=== PATIENT | male | born 1995 | race Caucasian/White ===

== ENCOUNTER 2025-04-08 22:48 | Emergency (ER) | payer OTHER, SELFPAY ==
[2025-04-08 23:02] VITALS: BP 119/74; PULSE 84; RESP 18; TEMP 36; O2SAT 97; BMI 24.0
[2025-04-09 00:02] VITALS: BP 120/74; PULSE 93; RESP 16; TEMP 36.7; O2SAT 98
--- NOTE | 2025-04-09 00:44 | ED_ITS ---
HPI - Male Genitourinary General Chief complaint: Urogenital-Male Stated complaint: Genital Warts Time Seen by Provider: 04/09/25 00:44 Source: patient Mode of arrival: ambulatory Limitations: no limitations History of Present Illness ED Provider: Anoop WOLFE HPI Narrative: 30-year-old male who presents to the Emergency Department for evaluation of genital lesions that have been present for >1 month. He reports that while hospitalized in [facility] in July of this year for hernia surgery, he had a lesion ?underneath? (uncertain if wart vs. abscess), which was removed during that hospitalization. He describes it as ?some kind of black thing,? but clarifies it was present since childhood, not necessarily related to the hernia surgery. In the last month he has noticed new genital warts that are progressively increasing in number. The lesions are pruritic but not painful. He denies penile discharge or scrotal swelling and feels well otherwise. The patient was evaluated by his primary care physician, who recommended HPV vacccination. The patient has been researching topical therapies such as imiquimod or podofilox. He has an appointment with urology in May but is concerned about the long wait. Patient states he and his have been attempting conception for the past 6?7 months without success and are worried whether the genital warts could be affecting fertility. Related Data Previous Rx's ?Medication ?Instructions ?Recorded podofilox 0.5 % topical solution 1 appl topical Q12H 3 days #3.5 mL 04/09/25 Allergies Allergy/AdvReac Type Severity Reaction Status Date / Time No Known Allergies Allergy Verified 04/08/25 23:06 Review of Systems Review of Systems: Yes all other systems are reviewed and are negative [facility] Social History Social History Smoked in Last 30 Days: Yes Use of substances other than those prescribed or required for medical reasons: No Advance Directives: No Advance Directives Information Provided: Yes Do you have a plan to hurt others: No Plan Physical Exam Vital Signs: Vital Signs: Last Vital Signs Temp 98.0 F 04/09/25 00:02 Pulse 93 04/09/25 00:02 Resp 16 04/09/25 00:02 BP 120/74 04/09/25 00:02 Pulse Ox 98 04/09/25 00:02 O2 Del Method Room Air 04/09/25 00:02 BMI result Body Mass Index 24.0 CONSTITUTIONAL: The patient appears non-toxic, well nourished and in no acute distress. Vital signs as documented. HEAD: Atraumatic, normocephalic. EYES: EOMs grossly intact, pupils equal, conjunctiva clear, no exudate. ENT: Nares patent, no discharge. Airway patent, no audible stridor, visible mucosa is pink and moist without noted lesions. NECK: trachea is midline, no obvious masses or gross abnormalities. CHEST: Symmetric movement, normal appearance. LUNGS: Non-labored work of breathing. CARDIAC: No evidence of hypoperfusion. ABDOMEN: Nondistended, no obvious injury. : Deferred. EXTREMITIES: Moves all extremities spontaneously without reported pain. No obvious injury or deformity noted. NEURO: Alert and oriented x3, CN II-XII appear grossly intact. Cerebellar Functioning grossly intact. Speech clear and appropriate. SKIN: There are multiple non erythematous papular lesions noted to the groin consistent with condylomata acuminata. Skin is otherwise warm, dry, color appropriate. No other rashes or lesions noted. Medical Decision Making Medical Decision Making MDM Narrative: 1:41 AM 04/09/2025 (Luis WOLFE): 30-year-old male who presents to the Emergency Department for evaluation of genital lesions that have been present for >1 month. He reports that while hospitalized in [facility] in July of this year for hernia surgery, he had a lesion ?underneath? (uncertain if wart vs. abscess), which was removed during that hospitalization. He describes it as ?some kind of black thing,? but clarifies it was present since childhood, not necessarily related to the hernia surgery. In the last month he has noticed new genital warts that are progressively increasing in number. The lesions are pruritic but not painful. He denies penile discharge or scrotal swelling and feels well otherwise. The patient was evaluated by his primary care physician, who recommended HPV vacccination. The patient has been researching topical therapies such as imiquimod or podofilox. He has an appointment with urology in May but is concerned about the long wait. Patient states he and his have been attempting conception for the past 6?7 months without success and are worried whether the genital warts could be affecting fertility. On exam the patient has multiple lesions in the groin consistent with genital warts, there is no penile discharge or other abnormal finding. The remainder of patient's exam is benign. The 2 medications were research by this provider, imiquimod requires 2-4 months of treatment and we will not be prescribed, the patient however is requesting treatment with podofilox. Patient was advised it is unclear if his insurance will cover the prescription, but a prescription will be sent. Patient has been educated to strictly follow the manufacture/pharmacy recommendations for use of this medication. Additionally patient has been instructed he must follow up with his PCP and/or urologist for additional management of his symptoms. 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 Your exam today is consistent with genital warts, more specifically known as condylomata acuminata. At this time there is no indication for admission to the hospital or continued ED observation, and it is safe to discharge you home. At your request we have prescribed you a course of podofilox. Please adhere to all manufacture and pharmacy recommendations regarding the application/use of this treatment. You must follow up with your primary care physician for re-evaluation, additional management of your symptoms, and continued preventative care. Please also follow up with the your urology appointment that is scheduled in May. If you do not have a primary care physician, please call the [facility] at [phone] to establish a new primary care physician. While waiting to establish your new primary care physician, you can call our [facility] at [phone] for non-emergency needs. Please return to the emergency department if you develop a severe or sudden change in your symptoms, a fever over 100.4 that does not improve with Tylenol or Ibuprofen, recurrent vomiting, or any other new or worsening symptoms or concerns. Prescriptions: New podofilox 0.5 % solution 1 appl topical Q12H 3 Days Qty: 3.5 0RF Print Language: Yakut
[2025-04-09 01:54] VITALS: BP 120/74; PULSE 93; RESP 16; TEMP 36.7; O2SAT 98
== END 2025-04-09 01:55 | disposition home or self-care (01) ==
PROVIDERS: Emergency Provider Emergency Medicine
DX: A63.0 Anogenital (venereal) warts (principal)
CPT/HCPCS: 99283; 99284

== ENCOUNTER 2025-05-02 03:21 | Emergency (ER) | payer OTHER, SELFPAY ==
--- NOTE | 2025-05-02 | ECG_ITS ---
Test Reason : COUGH,CP Blood Pressure : */* mmHG Vent. Rate : 76 BPM Atrial Rate : 76 BPM P-R Int : 150 ms QRS Dur : 86 ms QT Int : 356 ms P-R-T Axes : 22 82 35 degrees QTcB Int : 400 ms Normal sinus rhythm Normal ECG No previous ECGs available Referred By: Generic ED Physician Electronically Signed By: ELEANOR SANCHEZ MD
--- NOTE | ~2025-05-02 | XR_ITS ---
CLINICAL HISTORY: cough and chest pain 2 view chest x-ray Comparison: None provided Findings: Peribronchial thickening is present. No consolidation or effusion. Heart size is normal. No acute fracture. IMPRESSION: Peribronchial thickening which is nonspecific though can be seen in bronchiolitis. No consolidations or effusions. This document has been electronically signed by: Doron Otero MD on 05/02/2025 05:15:08
[2025-05-02 03:38] VITALS: BP 111/57; PULSE 88; RESP 20; TEMP 36.5; O2SAT 96; BMI 24.3
[2025-05-02 03:54] LABS: MANUAL DIFF FLAG NO
[2025-05-02 03:55] LABS: Hematocrit 38.6 % (42.0-52.0); Hemoglobin 13.8 g/dl (14.0-18.0); Imm Gran Abs Auto 0.01 X10*3/uL (0.00-0.03); Imm Gran Pct Auto 0.2 % (0.0-0.4); Lymphocytes Absolute Auto 1.8 X10*3/uL (1.2-4.9); Mean Corpuscular HGB Conc 35.8 g/dl (31.0-36.0); Mean Corpuscular Hemoglobin 29.7 pg (27.0-33.0); Mean Corpuscular Volume 83.0 fL (80.0-98.0); NRBC Abs Auto 0.000 X10*3/uL (0.0-0.012); NRBC Pct Auto 0.0 /100WBC (0.0-0.2); Platelet Count 148 X10*3/uL (160-400); Red Blood Count 4.65 X10*6/uL (4.60-5.80); White Blood Count 5.6 X10*3/uL (4.8-10.8)
[2025-05-02 04:11] LABS: Alanine Aminotransferase 16 U/L (0-40); Albumin Level 4.3 g/dL (3.5-5.0); Alkaline Phosphatase 51 U/L (39-117); Anion Gap 13 (12-20); Aspartate Amino Transferase 26 U/L (5-37); Blood Urea Nitrogen 13 mg/dL (9-16); Calcium 9.2 mg/dL (8.4-10.2); Carbon Dioxide 22 mmol/L (22-29); Chloride 110 mmol/L (96-108); Creatinine Clr Calc Pharmacy 150.7; Estimated Glomerular Filt Rate > 60; Potassium 3.9 mmol/L (3.3-5.1); Sodium 141 mmol/L (135-145); Total Protein 6.8 g/dL (6.5-8.0)
[2025-05-02 04:25] LABS: Troponin-I High Sensitivity < 2.7 ng/L (<3.5-35.0)
[2025-05-02 04:31] LABS: Resp Syncy Virus RNA Qual PCR NEGATIVE (Negative); SARS COV2 PCR INHOUSE NEGATIVE (Negative)
--- NOTE | 2025-05-02 05:33 | ED.GENADULT ---
HPI - General Adult General Chief complaint: General Medical Stated complaint: flu like Time Seen by Provider: 05/02/25 04:11 Source: patient Limitations: no limitations History of Present Illness ED Provider: Ayaka Valentine PA-C HPI narrative: 30-year-old male with a history of tobacco use, presents with a cough that began 2 days ago. Associated left-sided torso discomfort, both anteriorly and posteriorly, when he breathes, coughs and moves. Denies myalgia, fever, shortness of breath, wheezing or sick contacts with similar symptoms. The patient does not have asthma or known COPD. Related Data Previous Rx's ?Medication ?Instructions ?Recorded podofilox 0.5 % topical solution 1 appl topical Q12H 3 days #3.5 mL 04/09/25 albuterol sulfate 90 mcg/actuation 2 puff inhalation Q4-6H PRN 05/02/25 aerosol inhaler (Ventolin HFA) shortness of breath or wheezing #8.5 grams azithromycin 250 mg tablet 250 mg PO DAILY 4 days #4 tabs 05/02/25 prednisone 20 mg tablet 40 mg (2 x 20 mg) PO DAILY #8 tabs 05/02/25 Allergies Allergy/AdvReac Type Severity Reaction Status Date / Time No Known Allergies Allergy Verified 05/02/25 03:39 Review of Systems Review of Systems: Yes all other systems are reviewed and are negative Constitutional: Constitutional: Denies fatigue and Denies fever(s) Cardiovascular: Cardiovascular: Reports chest pain and Denies dyspnea Respiratory: Respiratory: Denies chest congestion, Reports cough, Denies dyspnea and Denies wheezing Gastrointestinal: Gastrointestinal: Denies nausea and Denies vomiting Musculoskeletal: Musculoskeletal: Reports back pain Endocrine: Endocrine: Denies fatigue Allergic/Immunologic: Allergic/Immunologic: Denies wheezing PMF Past Medical History Attestation statement: The following information was validated with the patient. Social History Social History Alcohol intake: current Alcohol intake frequency: a few times a week Alcohol type: hard liquor Smoked in Last 30 Days: Yes Use of substances other than those prescribed or required for medical reasons: No Any prior treatment program specific to substance use: No Advance Directives: No Advance Directives Information Provided: No Do you have a plan to hurt others: No Plan Physical Exam ED Vital Signs: Vital Signs - 24 hr 05/02/25 03:38 05/02/25 05:44 05/02/25 05:57 Temperature 97.7 F 98.4 F 98.4 F Pulse Rate 88 74 74 Respiratory Rate 20 16 16 Blood Pressure 111/57 L 113/69 113/69 Pulse Oximetry 96 96 96 Oxygen Delivery Method Room Air Room Air Room Air BMI result Body Mass Index 24.3 Const Other: Alert well-appearing Orientation/consciousness: patient oriented x3 Resp Other: Nonlabored respirations, active bronchospasm cough no wheezing Cardio Other: Normal peripheral perfusion Skin Other: Warm dry no rash Neuro General: patient oriented x3, gait normal, no focal motor deficits and CN's II-XI intact bilaterally Psych Other: Cooperative Medications Administered Discontinued Medications Generic Name Dose Route Start Last Admin Trade Name Freq PRN Reason Stop Dose Admin Azithromycin 500 mg 05/02/25 05:39 05/02/25 05:55 Azithromycin 500 Mg Tablet PO 05/02/25 05:40 500 mg ONCE ONE Administration Prednisone 40 mg 05/02/25 05:39 05/02/25 05:55 Prednisone 20 Mg Tablet PO 05/02/25 05:40 40 mg ONCE ONE Administration Medical Decision Making Medical Decision Making [facility] Narrative: 30-year-old male with a history of tobacco use, presents with a cough that began 2 days ago. Associated left-sided torso discomfort, both anteriorly and posteriorly, when he breathes, coughs and moves. Denies myalgia, fever, shortness of breath, wheezing or sick contacts with similar symptoms. The patient does not have asthma or known COPD. Problem: Tobacco use History: Per patient I have considered the following differential diagnoses: ACS, viral syndrome, pneumonia, bronchitis Plan: Patient's symptoms are not consistent with a ACS, his only risk factors for tobacco use, he is having active bronchospasm type cough. Screening labs including troponin and viral panel obtained. Chest x-ray pending. Given tobacco use, he will be treated for bronchitis. I have independently reviewed the following tests: Labs: No leukocytosis, not anemic, no electrolyte abnormality viral panel negative, troponin less than 2.7 EKG: Normal sinus rhythm, rate of 76 no ischemic changes no ectopy QTC 400 Chest x-ray:Findings: Peribronchial thickening is present. No consolidation or effusion. Heart size is normal. No acute fracture. IMPRESSION: Peribronchial thickening which is nonspecific though can be seen in bronchiolitis. No consolidations or effusions. Differential Diagnosis Differential Diagnoses: The differential diagnosis associated with the presentation includes See [facility] Admission/Observation Consideration of admission/observation: Escalation of care including admission/observation considered Not applicable Lab Data [facility] Lab Attestation statement: I reviewed the patient's lab results. 05/02/25 03:47 05/02/25 03:47 Labs: Lab Results 05/02/25 Range/Units 03:47 WBC 5.6 (4.8-10.8) X10*3/uL RBC 4.65 (4.60-5.80) X10*6/uL Hgb 13.8 L (14.0-18.0) g/dl Hct 38.6 L (42.0-52.0) % MCV 83.0 (80.0-98.0) fL MCH 29.7 (27.0-33.0) pg MCHC 35.8 (31.0-36.0) g/dl RDW 12.1 (11.0-16.0) % Plt Count 148 L (160-400) X10*3/uL MPV 9.1 L (9.4-12.4) fL Immature Gran % (Auto) 0.2 (0.0-0.4) % Neut % (Auto) 52.6 (45-73) % Lymph % (Auto) 32.7 (20-40) % Power % (Auto) 12.3 H (2-11) % Eos % (Auto) 2.0 (0-4) % Baso % (Auto) 0.2 (0-2) % Lymph # (Auto) 1.8 (1.2-4.9) X10*3/uL Power # (Auto) 0.7 (0.1-1.2) X10*3/uL Eos # (Auto) 0.1 (0.0-0.4) X10*3/uL Baso # (Auto) 0.0 (0.0-0.2) X10*3/uL Abs Immat Gran (auto) 0.01 (0.00-0.03) X10*3/uL Absolute Neuts (auto) 3.0 (2.0-8.3) x10*3/uL Absolute Nucleated RBC 0.000 (0.0-0.012) X10*3/uL Nucleated RBC % (auto) 0.0 (0.0-0.2) /100WBC Sodium 141 (135-145) mmol/L Potassium 3.9 (3.3-5.1) mmol/L Chloride 110 H (96-108) mmol/L Carbon Dioxide 22 (22-29) mmol/L Anion Gap 13 (12-20) BUN 13 (9-16) mg/dL Creatinine 0.77 (0.5-1.4) mg/dL Estim Creat Clear Calc 150.7 Estimated GFR > 60 Random Glucose 99 (60-115) mg/dL Calcium 9.2 (8.4-10.2) mg/dL Total Bilirubin 0.5 (0.0-1.0) mg/dL AST 26 (5-37) U/L ALT 16 (0-40) U/L Alkaline Phosphatase 51 (39-117) U/L Troponin I High Sens < 2.7 (<3.5-35.0) ng/L Total Protein 6.8 (6.5-8.0) g/dL Albumin 4.3 (3.5-5.0) g/dL Influenza Type A (PCR) NEGATIVE (Negative) Influenza Type B (PCR) NEGATIVE (Negative) RSV RNA Qual (PCR) NEGATIVE (Negative) SARS-CoV-2 RNA (RT-PCR) NEGATIVE (Negative) Independent Interpretation I performed an independent interpretation of an: EKG Radiology Impression Discussion of test interpretation with radiology: I have reviewed the radiologist's reading. Discharge Plan Discharge Clinical Impression: Bronchitis Patient Disposition: Home, Self-Care Instructions: How to Use a Metered-Dose Inhaler (ED), Acute Bronchitis (ED) Additional Instructions: You were found to have bronchitis and your chest x-ray. The remainder of your screening labs, including a cardiac enzyme in the viral panel, were negative. There were no concerning changes on the EKG. See home care instructions for the bronchitis. Take the steroid as directed, take the azithromycin as directed, use the inhaler as needed. Follow up with your primary care provider as needed. Prescriptions: New azithromycin 250 mg tablet 250 mg PO DAILY 4 Days Qty: 4 0RF Rx Instructions: start on day 2 of therapy prednisone 20 mg tablet 40 mg PO DAILY Qty: 8 0RF albuterol sulfate [Ventolin HFA] 90 mcg/actuation HFA aerosol inhaler 2 puff inhalation Q4-6H PRN (Reason: shortness of breath or wheezing) Qty: 8.5 0RF No Action podofilox 0.5 % solution 1 appl topical Q12H 3 Days Qty: 3.5 0RF Interventions: ED Discharge Assessment Last Done: 05/02/25 05:57 Discharge Date/Time: 05/02/25 05:57 Print Language: Chilean
[2025-05-02 05:44] VITALS: BP 113/69; PULSE 74; RESP 16; TEMP 36.9; O2SAT 96
[2025-05-02 05:57] VITALS: BP 113/69; PULSE 74; RESP 16; TEMP 36.9; O2SAT 96
== END 2025-05-02 05:57 | disposition home or self-care (01) ==
PROVIDERS: Emergency Provider Emergency Medicine
DX: J40 Bronchitis, not specified as acute or chronic (principal); R05.9 Cough, unspecified; R07.9 Chest pain, unspecified; Z03.818 Encounter for observation for suspected exposure to other biological agents ruled out
CPT/HCPCS: 36415; 71046; 80053; 84484; 85025; 87637; 93005; 99283; 99284

== ENCOUNTER → 2025-05-02 03:39 | Outpatient (BNV) | payer OTHER, SELFPAY | PROVIDERS: Emergency Provider Emergency Medicine; Visit Provider Internal Medicine Cardiovascular Disease | DX: R07.9 Chest pain, unspecified (principal); R05.9 Cough, unspecified | CPT/HCPCS: 93010 ==

== ENCOUNTER → 2025-05-02 04:22 | Outpatient (BNV) | payer OTHER, SELFPAY | PROVIDERS: Emergency Provider Emergency Medicine; Visit Provider Radiology Vascular & Interventional Radiology | DX: R05.9 Cough, unspecified (principal); R07.9 Chest pain, unspecified | CPT/HCPCS: 71046 ==

== ENCOUNTER 2025-05-08 04:43 | Emergency (ER) | payer OTHER, SELFPAY ==
--- NOTE | 2025-05-08 | ECG_ITS ---
Test Reason : CHEST PAIN Blood Pressure : */* mmHG Vent. Rate : 85 BPM Atrial Rate : 85 BPM P-R Int : 140 ms QRS Dur : 82 ms QT Int : 352 ms P-R-T Axes : 35 73 37 degrees QTcB Int : 418 ms Normal sinus rhythm Normal ECG When compared with ECG of 02-May-2025 03:39, No significant change was found Referred By: Generic ED Physician Electronically Signed By: Christ Perdomo
--- NOTE | ~2025-05-08 | US_ITS ---
CLINICAL HISTORY: unexplained PEs Bilateral lower extremity duplex venous Doppler Comparison: None Technique: Grayscale/Color/Duplex Doppler sonographic evaluation of the deep venous system within both lower extremities. Findings: Right lower extremity Common femoral vein: Patent CFV/GSV junction: Patent Femoral vein: Patent Popliteal vein: Patent Infrapopliteal veins: Patent where seen Soft tissue: No focal abnormality Left lower extremity Common femoral vein: Patent CFV/GSV junction: Patent Femoral vein: Patent Popliteal vein: Patent Infrapopliteal veins: Patent where seen Soft tissues: No focal abnormality Impression: 1. Negative for bilateral lower extremity DVT 2. No Stock's cyst This document has been electronically signed by: Dusty Soni MD on 05/08/2025 10:14:21
--- NOTE | ~2025-05-08 | CT_ITS ---
CLINICAL HISTORY: CP, dimer +(258) CT angiography chest using contrast. 3-D postprocessing Comparison: CR - XR CHEST 2V - 05/02/25 04:22 EST Findings: There is good opacification of the main, right and left pulmonary arteries. Multiple segmental pulmonary emboli at the lung bases Normal caliber thoracic aorta and great vessels. Mild right heart strain [place] mediastinal lymph nodes. No lymphadenopathy. Lung [place] are normally expanded. Frothy airspace disease right and left lower lobe reflecting pulmonary infarct. Subsegmental dependent atelectasis with basilar airspace disease. Small layering pleural effusions. No pneumothorax. No thyroid nodules demonstrated. No chest wall masses.No axillary adenopathy. No abnormalities are noted in the upper portions of the abdomen. No bony destructive processes demonstrated. Impression: 1. Multiple bilateral segmental pulmonary emboli lung bases with associated pulmonary infarcts bilaterally. Mild right heart strain 2. Normal caliber thoracic aorta. 3. Small right pleural effusion. Mild basilar atelectasis and airspace disease possibly atelectatic can not exclude superimposed pneumonic process. This document has been electronically signed by: Dusty Soni MD on 05/08/2025 07:54:42
[2025-05-08 04:46] VITALS: BP 113/61; PULSE 85; RESP 18; TEMP 36.8; O2SAT 96; BMI 24.3
[2025-05-08 05:08] LABS: MANUAL DIFF FLAG NO
[2025-05-08 05:15] VITALS: BP 109/75; PULSE 75; RESP 19; TEMP 36.9; O2SAT 97
[2025-05-08 05:27] LABS: Alanine Aminotransferase 20 U/L (0-40); Albumin Level 4.3 g/dL (3.5-5.0); Alkaline Phosphatase 58 U/L (39-117); Anion Gap 14 (12-20); Aspartate Amino Transferase 19 U/L (5-37); Blood Urea Nitrogen 20 mg/dL (9-16); Calcium 8.8 mg/dL (8.4-10.2); Carbon Dioxide 23 mmol/L (22-29); Chloride 107 mmol/L (96-108); Creatinine Clr Calc Pharmacy 113.8; Estimated Glomerular Filt Rate > 60; Potassium 4.1 mmol/L (3.3-5.1); Sodium 140 mmol/L (135-145); Total Protein 7.0 g/dL (6.5-8.0)
[2025-05-08 05:29] LABS: Troponin-I High Sensitivity < 2.7 ng/L (<3.5-35.0)
[2025-05-08 05:33] LABS: INTERNATIONAL NORM RATIO 1.1 (0.9-1.1); Prothrombin Time 13.1 SEC (11.2-13.5)
[2025-05-08 05:39] LABS: Hematocrit 39.6 % (42.0-52.0); Hemoglobin 14.2 g/dl (14.0-18.0); Imm Gran Abs Auto 0.33 X10*3/uL (0.00-0.03); Imm Gran Pct Auto 3.6 % (0.0-0.4); Lymphocytes Absolute Auto 3.5 X10*3/uL (1.2-4.9); Mean Corpuscular HGB Conc 35.9 g/dl (31.0-36.0); Mean Corpuscular Hemoglobin 29.0 pg (27.0-33.0); Mean Corpuscular Volume 80.8 fL (80.0-98.0); NRBC Abs Auto 0.000 X10*3/uL (0.0-0.012); NRBC Pct Auto 0.0 /100WBC (0.0-0.2); Platelet Count 299 X10*3/uL (160-400); Red Blood Count 4.90 X10*6/uL (4.60-5.80); White Blood Count 9.3 X10*3/uL (4.8-10.8)
--- NOTE | 2025-05-08 05:46 | ED.CHESTPAIN ---
HPI - Chest Pain General Chief Complaint: Chest Pain Stated Complaint: CP Time Seen by Provider: 05/08/25 05:28 Source: patient Mode of arrival: ambulatory Limitations: no limitations History of Present Illness ED Provider: Dr. Martha Llamas HPI narrative: Patient comes to the emergency room complaining of right-sided chest pain that started earlier this morning. Patient states that it hurts worse when he takes a big breath. Patient took Tylenol a proximally 1 hour ago with no relief. Patient was diagnosed with bronchitis 1 week ago. Patient denies fever chills, denies shortness of breath. Denies syncope or near syncopal episodes Related Data Previous Rx's ?Medication ?Instructions ?Recorded podofilox 0.5 % topical solution 1 appl topical Q12H 3 days #3.5 mL 04/09/25 albuterol sulfate 90 mcg/actuation 2 puff inhalation Q4-6H PRN 05/02/25 aerosol inhaler (Ventolin HFA) shortness of breath or wheezing #8.5 grams azithromycin 250 mg tablet 250 mg PO DAILY 4 days #4 tabs 05/02/25 prednisone 20 mg tablet 40 mg (2 x 20 mg) PO DAILY #8 tabs 05/02/25 rivaroxaban 15 mg (42)-20 mg (9) See Rx Instructions PO .COMPLEX 05/08/25 tablets in a starter pack #51 ea Allergies Allergy/AdvReac Type Severity Reaction Status Date / Time No Known Allergies Allergy Verified 05/08/25 04:47 Review of Systems Review of Systems: Constitutional : No Weight loss, No Fever, No Chills, No Night Sweats, No Fatigue, No Malaise ENT/Mouth : No Hearing loss, No Ear Pain, No Nasal Congestion, No Sinus Pain, No Hoarseness, No sore throat, No Rhinorrhea, No Swallowing Difficulty Eyes: No Eye Pain, No Swelling, No Redness, No Foreign Body, No Discharge, No Vision Changes Cardiovascular : Complaining of right-sided Chest Pain, which is worse with a deep inhalation., No SOB, No Dyspnea on Exertion, No Orthopnea, No Edema, No Palpitations Respiratory : No Cough, No Sputum, No Wheezing, No Smoke Exposure, No Dyspnea Gastrointestinal : No Nausea, No Vomiting, No Diarrhea, No Constipation, No abdominal Pain, No Hematochezia, No Melena Genitourinary : no irregular bleeding, No Dysuria, No Urinary Frequency, No Hematuria, No Urinary Incontinence, No Urgency, No Flank Pain, No Urinary Flow Changes, No Hesitancy Musculoskeletal : No joint pain, No Myalgias, No Joint Swelling Skin : No Skin Lesions, No rash Neuro : No Weakness, No Numbness, No Paresthesias, No Loss of Consciousness, No Dizziness, No Headache Psych : No Anxiety/Panic, No Depression, No SI/HI/AH/VH, No Social Issues, Heme/Lymph: No Bruising, No Bleeding,No Lymphadenopathy Endocrine : No Polyuria, No Polydipsia, No Temperature Intolerance [facility] Social History Social History Alcohol intake: current Alcohol intake frequency: a few times a week Alcohol type: hard liquor Smoked in Last 30 Days: Yes Use of substances other than those prescribed or required for medical reasons: No Advance Directives: No Advance Directives Information Provided: Yes Physical Exam Exam: Exam: Appearance: Alert. Oriented X3. No acute distress. Eyes: Pupils equal, round and reactive to light. ENT: Pharynx normal. Neck: Normal inspection. Neck supple. No lymph nodes noted. No crepitus CVS: Normal heart rate and rhythm. Pulses normal. Normal S1 and S2 Respiratory: No respiratory distress. Breath sounds normal. No Wheezing. No rales Abdomen: Soft and nontender. No rigidity. No distention. Skin: Skin warm and dry. Normal skin color. Normal skin turgor. Extremities: No lower extremity edema. No Lacerations. No Rash Neuro: Oriented X 3. No motor deficit. No sensory deficit. Moving all extremities. No slurred speech. CN 2 through 12 grossly intact Psych: calm, cooperative, normal affect Vital Signs: Vital Signs: Last Vital Signs Temp 98.4 F 05/08/25 07:11 Pulse 91 05/08/25 07:11 Resp 17 05/08/25 07:11 BP 117/67 05/08/25 07:11 Pulse Ox 98 05/08/25 07:11 O2 Del Method Room Air 05/08/25 07:11 BMI result Body Mass Index 26.3 Course Course Course Narrative: Patient well-appearing Vitals are stable, no fever, normal blood pressure All of patient's labs pending Reevaluation(s) Reevaluation #1: 10:59 AM 05/08/2025 (Jb Stahl MD): this patient was signed out to me by the overnight physician at change of shift pending the results of a CT pulmonary angiogram to look for a possible pulmonary embolism. The patient had presented with left-sided pleuritic chest pain. The patient has been here 1 week ago with some similar symptoms and was diagnosed with a possible bronchitis. The patient is vital signs were unremarkable. A D-dimer was minimally elevated. The CT scan has been looked at by the overnight physician and it seemed as though there might be a pneumonia and so a dose of Augmentin was ordered. The results of the CT pulmonary angiogram came back during my shift. Impression: 1. Multiple bilateral segmental pulmonary emboli lung bases with associated pulmonary infarcts bilaterally. Mild right heart strain 2. Normal caliber thoracic aorta. 3. Small right pleural effusion. Mild basilar atelectasis and airspace disease possibly atelectatic can not exclude superimposed pneumonic process. The patient does not have a fever. The patient does not have an elevated white count or left shift. I do not have a significant suspicion for A pneumonia in his case. Overall this is an unusual case. The patient is an otherwise healthy 30-year-old. He has had no recent injury or travel history. It is not at all clear to me why he would have pulmonary emboli. Additionally odd is that his vital signs are normal ( he would be PERC negative) and his D-dimer is minimally abnormal at 258. Although the radiologist described him as having mild right heart strain I think this is probably an over read. He looks entirely well with normal vital signs. He has a an undetectable troponin. he has an NT pro BNP of 20.5. bilateral lower extremity ultrasounds were done. There was no clot burden seen on these ultrasounds. These are negative ultrasounds. Given how well he clinically looks I think this may be managed as an outpatient. He will be started on rivaroxaban. I have recommended that he follow up with the hematology office as there is no indication as to why he would have a pulmonary embolism. The patient has a primary care clinic which I believe is primarily a telehealth Clinic in [facility]. the patient has been given a dose of apixaban here in the emergency department but when I tried to prescribe apixaban for outpatient treatment it seems his insurance does not cover apixaban but does cover rivaroxaban. Therefore I prescribed rivaroxaban. Time: 11:05 Medications Administered Discontinued Medications Generic Name Dose Route Start Last Admin Trade Name Gustavo PRN Reason Stop Dose Admin Amoxicillin/Clavulanate Potassium 500 mg 05/08/25 07:24 05/08/25 07:29 Amoxicillin/Potassium Clav 500 Mg Tablet PO 05/08/25 07:25 500 mg ONCE ONE Administration Apixaban 10 mg 05/08/25 08:45 05/08/25 08:48 Apixaban 5 Mg Tablet PO 05/08/25 08:46 10 mg ONCE ONE Administration Iohexol 65 ml 05/08/25 06:08 05/08/25 06:12 Iohexol 350 Mg/Ml 100 Ml Infus..Btl IV 05/08/25 06:09 65 ml ONCE ONE Administration Ketorolac Tromethamine 30 mg 05/08/25 07:24 05/08/25 07:29 Ketorolac Tromethamine 30 Mg/Ml Vial IVPUSH 05/08/25 07:25 30 mg ONCE ONE Administration Medical Decision Making Medical Decision Making [facility] Narrative: My interpretation of EKG: Normal sinus rhythm, heart rate 82, no ST segment depression or elevation, no T-wave inversion, QTC 418 My interpretation of labs, no significant abnormality in patient's hematology Patient's D-dimer was positive. CT scan pending. My interpretation: I do not see an obvious pulmonary embolism. Patient's seems to have pneumonia in the right lower lobe. Patient does not have any fever, no tachycardia. Sepsis is not suspected. Patient was given Augmentin and Toradol IV. Patient's vitals stable, no fever, no oxygen desaturations Sign-out given to my colleague Dr. Stahl Differential Diagnosis Differential Diagnoses: The differential diagnosis associated with the presentation includes (Bronchitis, pneumonia, pulmonary embolism, costochondritis, pleurisy) Lab Data [facility] Lab Attestation statement: I reviewed the patient's lab results. 05/08/25 05:02 05/08/25 05:02 Labs: Lab Results 05/08/25 Range/Units 05:02 WBC 9.3 (4.8-10.8) X10*3/uL RBC 4.90 (4.60-5.80) X10*6/uL Hgb 14.2 (14.0-18.0) g/dl Hct 39.6 L (42.0-52.0) % MCV 80.8 (80.0-98.0) fL MCH 29.0 (27.0-33.0) pg MCHC 35.9 (31.0-36.0) g/dl RDW 12.0 (11.0-16.0) % Plt Count 299 D (160-400) X10*3/uL MPV 8.5 L (9.4-12.4) fL Immature Gran % (Auto) 3.6 H (0.0-0.4) % Neut % (Auto) 47.2 (45-73) % Lymph % (Auto) 37.6 (20-40) % [place] % (Auto) 10.1 (2-11) % Eos % (Auto) 1.0 (0-4) % Baso % (Auto) 0.5 (0-2) % Lymph # (Auto) 3.5 (1.2-4.9) X10*3/uL [place] # (Auto) 0.9 (0.1-1.2) X10*3/uL Eos # (Auto) 0.1 (0.0-0.4) X10*3/uL Baso # (Auto) 0.1 (0.0-0.2) X10*3/uL Abs Immat Gran (auto) 0.33 H (0.00-0.03) X10*3/uL Absolute Neuts (auto) 4.4 (2.0-8.3) x10*3/uL Absolute Nucleated RBC 0.000 (0.0-0.012) X10*3/uL Nucleated RBC % (auto) 0.0 (0.0-0.2) /100WBC PT 13.1 (11.2-13.5) SEC INR 1.1 (0.9-1.1) D-Dimer High Sensitivty 258 NG/ML Sodium 140 (135-145) mmol/L Potassium 4.1 (3.3-5.1) mmol/L Chloride 107 (96-108) mmol/L Carbon Dioxide 23 (22-29) mmol/L Anion Gap 14 (12-20) BUN 20 H (9-16) mg/dL Creatinine 1.02 (0.5-1.4) mg/dL Estim Creat Clear Calc 113.8 Estimated GFR > 60 Random Glucose 93 (60-115) mg/dL Calcium 8.8 (8.4-10.2) mg/dL Total Bilirubin 0.3 (0.0-1.0) mg/dL AST 19 (5-37) U/L ALT 20 (0-40) U/L Alkaline Phosphatase 58 (39-117) U/L Troponin I High Sens < 2.7 (<3.5-35.0) ng/L NT-Pro-B Natriuret Pep 20.5 (<300) pg/mL Total Protein 7.0 (6.5-8.0) g/dL Albumin 4.3 (3.5-5.0) g/dL Independent Interpretation I performed an independent interpretation of an: CT Scan Radiology Impression Discussion of test interpretation with radiology: I have reviewed the radiologist's reading. Discharge Plan Discharge Clinical Impression: Pulmonary embolism and infarction Patient Disposition: Home, Self-Care Instructions: Pulmonary Embolism (ED), Blood Thinners (ED) Additional Instructions: Your testing today shows that you have had some blood clots in your lungs. Because of these blood clots you has been started on an anticoagulant medication, rivaroxaban. Anticoagulant medications are also known as blood thinners. . Rivaroxaban is commonly known as Xarelto. This medication should be taken 2 times a day for the 1st 7 days at 15 mg per dose. After 7 days take 20 mg of rivaroxaban once a day. You may take acetaminophen ( Tylenol) as needed for pain. People who are on blood thinners Are generally advised to avoid using ibuprofen, naproxen, Aleve, aspirin, and other similar drugs that are considered nonsteroidal anti-inflammatories. Since it is not clear why you might have had blood clots it would be good for you to see a chair car attendant. A chair car attendant as a specialist in blood conditions. Please contact the hematology office on Saturday. Additionally please contact your regular doctor's office for follow up with your regular doctor to discuss this further as well. Return to the Emergency room at any time if you feel significantly more short of breath or otherwise significantly worse. Prescriptions: New rivaroxaban 15 mg (42)- 20 mg (9) tablets,dose pack See Rx Instructions .ROUTE .COMPLEX Qty: 51 0RF Rx Instructions: take one-15 mg tablet twice daily for 21 days, then one-20 mg tablet once daily; must take with meal/food No Action podofilox 0.5 % solution 1 appl topical Q12H 3 Days Qty: 3.5 0RF azithromycin 250 mg tablet 250 mg PO DAILY 4 Days Qty: 4 0RF Rx Instructions: start on day 2 of therapy prednisone 20 mg tablet 40 mg PO DAILY Qty: 8 0RF albuterol sulfate [Ventolin HFA] 90 mcg/actuation HFA aerosol inhaler 2 puff inhalation Q4-6H PRN (Reason: shortness of breath or wheezing) Qty: 8.5 0RF Referrals: [facility] [place] Oncology/Hematology [Provider Group] Print Language: Sinhala
[2025-05-08 05:48] LABS: D Dimer High Sensitivity 258 NG/ML
[2025-05-08] MEDS: iohexoL 350 MG/ML 100 ML INFUS..BTL 65 ML IV (06:12)
[2025-05-08 07:11] VITALS: BP 117/67; PULSE 91; RESP 17; TEMP 36.9; O2SAT 98
--- NOTE | 2025-05-08 07:37 | PC.NURSE ---
Assumed care of patient at 0700. Patient resting in bed, complaining of right sided chest pain 9/10 when taking a deep breath in. Meds given per JUL. VSS on RA. Awaiting CT results.
[2025-05-08 08:03] VITALS: BMI 26.3
[2025-05-08 09:10] LABS: NT Pro B Type Natriuretic Pept 20.5 pg/mL (<300)
[2025-05-08 11:28] VITALS: BP 114/72; PULSE 76; RESP 16; TEMP 36.9; O2SAT 96
== END 2025-05-08 11:29 | disposition home or self-care (01) ==
PROVIDERS: Emergency Medicine; Emergency Provider Emergency Medicine
DX: I26.99 Other pulmonary embolism without acute cor pulmonale (principal); R07.9 Chest pain, unspecified
CPT/HCPCS: 36415; 71275; 80053; 83880; 84484; 85025; 85379; 85610; 93005; 93970; 96374; 99284; 99285; J1885; Q9967

== ENCOUNTER → 2025-05-08 04:46 | Outpatient (BNV) | payer OTHER, SELFPAY | PROVIDERS: Emergency Provider Emergency Medicine; Visit Provider Internal Medicine Cardiovascular Disease | DX: R07.9 Chest pain, unspecified (principal) | CPT/HCPCS: 93010 ==

== ENCOUNTER → 2025-05-08 05:50 | Outpatient (BNV) | payer OTHER, SELFPAY | PROVIDERS: Emergency Provider Emergency Medicine; Visit Provider Radiology Diagnostic Radiology | DX: I26.94 Multiple subsegmental thrombotic pulmonary emboli without acute cor pulmonale (principal); J90 Pleural effusion, not elsewhere classified | CPT/HCPCS: 71275; 93970 ==